=== PATIENT | female | born 1985 | race Caucasian/White ===

== ENCOUNTER 2017-10-03 18:10 | Emergency (ER) | payer BC, OTHER ==
[2017-10-03 19:10] VITALS: BP 110/81; PULSE 78; TEMP 98.9; BMI 21.9
[2017-10-03] MEDS ORDERED: HYDROCORTISONE 1% TOPICAL CREAM 30 GM TUBE TP ONE (19:16)
--- NOTE | 2017-10-03 19:22 | PDOC ---
History of Present Illness - General History Source: Patient Exam Limitations: No Limitations - History of Present Illness Initial Comments: 10/03/17 19:29 The patient is a 32 year old female with no significant PMH who presents to the emergency department with a rash today. The patient reports she was experiencing itchiness in her upper chest and back earlier this afternoon. The patient then noticed a rash in this area prompting her to come to the ER. Of note, the patient reports she was wearing a new scarf around her neck today. The patient denies headache, fever, chills, nausea, vomit, diarrhea and constipation. Allergies: NKA Past surgical history: None reported. Social history: No reported alcohol, drug or cigarette use. PCP: Dr. Ruffin <Shelby Aquino - Last Filed: 10/03/17 19:29> <Willie Plasencia - Last Filed: 10/04/17 06:39> - General Chief Complaint: Rash Stated Complaint: RASH Past History <Shelby Aquino - Last Filed: 10/03/17 19:29> - Past Medical History COPD: No - Suicide/Smoking/Psychosocial Hx Smoking History: Never smoked Hx Alcohol Use: No Drug/Substance Use Hx: No <Willie Plasencia - Last Filed: 10/04/17 06:39> - Past Medical History Allergies/Adverse Reactions: Allergies Allergy/AdvReac Type Severity Reaction Status Date / Time No Known Allergies Allergy Verified 05/19/15 14:15 Home Medications: Ambulatory Orders Hydrocortisone Valerate [Westcort 0.2% Cream -] 1 applic TP BID 5 Days #1 tube 10/03/17 Review of Systems - Review of Systems Able to Perform ROS?: Yes Comments:: 10/03/17 19:30 ROS: A complete review of 10 out of 10 review of systems is taken and is negative apart from what is previously mentioned below and in the HPI. <Shelby Aquino - Last Filed: 10/03/17 19:29> *Physical Exam - Vital Signs Last Vital Signs Temp Pulse Resp BP Pulse Ox 98.9 F 78 16 110/81 100 10/03/17 19:08 10/03/17 19:08 10/03/17 19:08 10/03/17 19:08 10/03/17 19:08 - Physical Exam Comments: 10/03/17 19:30 Vitals: Triage vital signs reviewed General Appearance: No acute distress, well nourished, well developed Eyes: Pupils equal reactive round, extraocular movement intact Cardiac: Regular rate and rhythm, no murmurs, no rubs, no gallops Lungs: Clear to auscultation bilateral, good air movement bilaterally Abdomen: Soft, nondistended, normal bowel sounds, nontender to palpation Extremities: Full range of motion to all extremities, no cyanosis, clubbing, or edema Skin: (+) Papules, petechiae, and hives scattered throughout upper chest and back. Warm and dry. Neuro: AOX3; Cranial Nerves 2-12 grossly intact, Strength intact to all extremities, Sensation intact to all extremities, gait normal Psych: Normal mood, normal affect <Shelby Aquino - Last Filed: 10/03/17 19:29> - Vital Signs Last Vital Signs Temp Pulse Resp BP Pulse Ox 98.9 F 78 16 110/81 100 10/03/17 19:08 10/03/17 19:08 10/03/17 19:08 10/03/17 19:08 10/03/17 19:08 <Willie Plasencia - Last Filed: 10/04/17 06:39> ED Treatment Course - Medications Given in the ED: ED Medications Discontinued Medications Generic Name Dose Route Start Last Admin Trade Name Alfonzoq PRN Reason Stop Dose Admin Hydrocortisone 1 applic 10/03/17 19:16 10/03/17 19:19 Hytone 1% Cream - TP 10/03/17 19:17 Not Given ONCE ONE <Shelby Aquino - Last Filed: 10/03/17 19:29> Medical Decision Making - Medical Decision Making 10/04/17 06:38 most likely bug bites with allergic component topical corticosteroid <Willie Plasencia - Last Filed: 10/04/17 06:39> *DC/Admit/Observation/Transfer - Attestations Scribe Attestion: 10/03/17 19:33 Documentation prepared by Shelby Aquino, acting as medical oncologist for Willie Plasencia MD. <Shelby Aquino - Last Filed: 10/03/17 19:29> <Willie Plasencia - Last Filed: 10/04/17 06:39> Diagnosis at time of Disposition: Allergic dermatitis - Discharge Dispostion Disposition: HOME Condition at time of disposition: Good - Prescriptions Prescriptions: Hydrocortisone Valerate [Westcort 0.2% Cream -] 1 applic TP BID 5 Days #1 tube - Referrals Referrals: Kelley Ruffin MD [Primary Care Provider] - - Patient Instructions Additional Instructions: Call before 7am if you're not better: [phone] - Post Discharge Activity
== END 2017-10-03 19:24 | disposition home or self-care (01) ==
LOC: FER 18:10
DX: L23.9 Allergic contact dermatitis, unspecified cause (principal)
CPT/HCPCS: 99281-25

== ENCOUNTER 2022-01-16 08:05 | Emergency (ER) | payer BC, OTHER ==
[2022-01-16 08:20] VITALS: BP 120/93; PULSE 92; TEMP 99.9; BMI 21.5
[2022-01-16] MEDS ORDERED: ACETAMINOPHEN 500 MG TABLET (FP) PO ONE (08:44)
[2022-01-16] MEDS ORDERED: ACETAMINOPHEN 500 MG TABLET (FP) ONE (08:51)
[2022-01-16] MEDS ORDERED: PHENAZOPYRIDINE HCL 100 MG TABLET (FP) ONE (08:51)
[2022-01-16 08:52] LABS: HCG,QUALITATIVE URINE Negative
[2022-01-16] MEDS ORDERED: PHENAZOPYRIDINE HCL 100 MG TABLET (FP) PO SCH (09:00)
[2022-01-16 09:27] LABS: EPITHELIAL CELLS FEW /hpf
[2022-01-16] MEDS ORDERED: SULFAMETHOXAZOLE/TRIMETHOPRIM 800MG/160MG D.S. TABLET PO ONE (11:12)
[2022-01-16] MEDS ORDERED: SULFAMETHOXAZOLE/TRIMETHOPRIM 800MG/160MG D.S. TABLET ONE (11:15)
== END 2022-01-16 11:20 | disposition home or self-care (01) ==
LOC: FER 08:05
DX: R30.0 Dysuria (principal)
CPT/HCPCS: 74176-TC; 81003; 81015; 84703; 87086; 99284-25

== ENCOUNTER 2022-01-18 06:27 | Emergency (ER) | payer OTHER ==
[2022-01-18] MEDS ORDERED: CIPROFLOXACIN 500 MG TABLET (RESTRICTED TO ID) PO ONE (06:42)
[2022-01-18 06:44] VITALS: BP 101/55; PULSE 79; TEMP 99.4; BMI 21.5
[2022-01-18] MEDS ORDERED: CIPROFLOXACIN 250 MG TABLET (RESTRICTED TO ID) PO ONE (06:46)
== END 2022-01-18 06:52 | disposition home or self-care (01) ==
LOC: FER 06:27
DX: N39.0 Urinary tract infection, site not specified (principal)
CPT/HCPCS: 99283-25